=== PATIENT | male | born 1970 | race Hispanic/Latino ===

== ENCOUNTER 2020-06-28 14:49 | Observation (INO) | payer OTHER ==
[~2020-06-28] VITALS: Ht 167.6 cm; Wt 78.5 kg
[2020-06-28] MEDS ORDERED: ONDANSETRON HCL INJ 2MG/ML 2ML 2 MG/ML VIAL IV STA (15:00)
[2020-06-28] MEDS ORDERED: MORPHINE SULFATE INJ 4 MG/ML INJ 1ML IV STA (15:00)
[2020-06-28] MEDS ORDERED: CEFTRIAXONE SOD 1 GM/50 ML BAG IV ONE (15:00)
[2020-06-28] MEDS ORDERED: SODIUM CHLORIDE 0.9% 1000ML 1,000 ML IV STA (15:05)
[2020-06-28] MEDS ORDERED: CEFTRIAXONE SOD 1 GM in SODIUM CHLORIDE 0.9% 50ML 50 ML IV ONE (15:15)
[2020-06-28 15:40] LABS: EOSINOPHILS % 1.2 % (0.0-6.0); HEMATOCRIT 30.2 % (38.2-49.6); HEMOGLOBIN 9.7 g/dL (14.0-18.0); LYMPHOCYTES # (AUTO) 0.5 (1.0-3.2); LYMPHOCYTES % 18.7 % (18.0-39.1); MEAN CORPUSCULAR HEMOGLOBIN 30.1 pg (28-32); MEAN CORPUSCULAR HGB CONC 32.1 g/dL (31-35); MEAN CORPUSCULAR VOLUME 93.8 fL (81-99); MONOCYTES # (AUTO) 0.1 (0.2-0.8); MONOCYTES % 3.5 % (4.4-11.3); NEUTROPHILS % 76.2 % (38.7-80.0); PLATELET COUNT 103 x10e3/uL (140-360); RED BLOOD COUNT 3.22 x10e6/uL (4.3-5.7); RED CELL DISTRIBUTION WIDTH 15.7 % (11.7-14.4)
[2020-06-28 15:59] LABS: INR 0.93; PROTHROMBIN TIME 13.1 seconds (11.9-14.5)
[2020-06-28 16:00] LABS: PARTIAL THROMBOPLASTIN TIME 31.2 seconds (23.8-35.5)
[2020-06-28 16:10] LABS: ALBUMIN/GLOBULIN RATIO 0.5 (0.8-2.0); ANION GAP 15.8 mmol/L (8-16); CALCIUM 9.4 mg/dL (8.4-10.2); CREATININE, SERUM 1.36 mg/dL (0.72-1.25); EOSINOPHILS % (MANUAL) 3 % (0-7); LYMPHOCYTES % (MANUAL) 21 % (19-48); MAGNESIUM 1.7 MG/DL (1.3-2.1); MONOCYTES % (MANUAL) 2 % (3.4-9.0); NEUTROPHILS % (MANUAL) 74 % (40-74); PLATELET ESTIMATE SLIGHTLY DECREASED; PLATELET MORPHOLOGY COMMENT NORMAL; POTASSIUM 3.8 mmol/L (3.5-5.1); RBC MORPHOLOGY COMMENT NORMAL
[2020-06-28 16:17] LABS: CREATINE KINASE MB 0.3 ng/mL (0-5.0)
[2020-06-28 16:38] LABS: B-TYPE NATRIURETIC PEPTIDE2 < 10.0 pg/mL (0-100)
[2020-06-28] MEDS ORDERED: VANCOMYCIN 1GM/NS 250 ML 250 ML IV SCH (17:00)
[2020-06-28] MEDS: CEFEPIME 2 GM/NS 0.9% 100 ML 100 ML IV SCH (17:06)
[2020-06-28 17:56] LABS: CLARITY,URINE HAZY (CLEAR); COLOR,URINE YELLOW (YELLOW); KETONES,URINE NEGATIVE (NEGATIVE); LEUKOCYTE ESTERASE ,URINE NEGATIVE (NEGATIVE); NITRITE,URINE NEGATIVE (NEGATIVE); PROTEIN,URINE DIPSTICK NEGATIVE (NEGATIVE); URINE UROBILINOGEN 0.2 mg/dL (0.2 - 1)
[2020-06-28 17:57] LABS: BACTERIA,URINE FEW /HPF; EPITHELIAL CELLS,URINE FEW /LPF; RBC,URINE 0-5 /HPF (0-5); WBC,URINE (MAN) 0-5 /HPF (0-5)
[2020-06-28] MEDS ORDERED: ONDANSETRON HCL INJ 2MG/ML 2ML 2 MG/ML VIAL IV PRN (18:00)
[2020-06-28] MEDS ORDERED: MORPHINE SULFATE INJ 2 MG/ML SYR IV PRN (18:00)
[2020-06-28] MEDS: FAMOTIDINE 20 MG/2 ML VIAL IV SCH (18:22)
[2020-06-28] MEDS: VANCOMYCIN 1GM/NS 250 ML 250 ML IV SCH (18:22)
[2020-06-28 20:00] VITALS: BP 117/82
[2020-06-28 22:01] VITALS: BP 128/95
[2020-06-28 22:18] LABS: CREATINE KINASE MB 0.4 ng/mL (0-5.0)
[2020-06-29] VITALS: BP 113/71
[2020-06-29 03:54] LABS: EOSINOPHILS % 0.9 % (0.0-6.0); HEMATOCRIT 26.4 % (38.2-49.6); HEMOGLOBIN 8.5 g/dL (14.0-18.0); LYMPHOCYTES # (AUTO) 0.6 (1.0-3.2); LYMPHOCYTES % 25.4 % (18.0-39.1); MEAN CORPUSCULAR HEMOGLOBIN 29.8 pg (28-32); MEAN CORPUSCULAR HGB CONC 32.2 g/dL (31-35); MEAN CORPUSCULAR VOLUME 92.6 fL (81-99); MONOCYTES # (AUTO) 0.2 (0.2-0.8); MONOCYTES % 8.9 % (4.4-11.3); NEUTROPHILS # (AUTO) 1.5 (2.1-6.9); NEUTROPHILS % 64.8 % (38.7-80.0); PLATELET COUNT 77 x10e3/uL (140-360); RED BLOOD COUNT 2.85 x10e6/uL (4.3-5.7); RED CELL DISTRIBUTION WIDTH 15.8 % (11.7-14.4)
[2020-06-29 04:00] VITALS: BP 104/71
[2020-06-29 04:19] LABS: CREATINE KINASE MB 0.4 ng/mL (0-5.0)
[2020-06-29 04:20] LABS: ALANINE AMINOTRANSFERASE 27 IU/L (0-55); ALBUMIN 2.4 g/dL (3.5-5.0); ALBUMIN/GLOBULIN RATIO 0.5 (0.8-2.0); ALKALINE PHOSPHATASE 49 IU/L (40-150); ANION GAP 13.2 mmol/L (8-16); BLOOD UREA NITROGEN 17 mg/dL (7-26); BUN/CREATININE RATIO 14 (6-25); CALCIUM 9.1 mg/dL (8.4-10.2); CARBON DIOXIDE 26 mmol/L (22-29); CHLORIDE 100 mmol/L (98-107); CHOLESTEROL 133 MD/DL (0-199); CREATININE, SERUM 1.21 mg/dL (0.72-1.25); EST GLOMERULAR FILTRATION RATE > 60 ML/MIN (60-); GLUCOSE 97 mg/dL (74-118); HDL CHOLESTEROL 33 MG/DL (40-60); LDL CHOLESTEROL 79 MG/DL (60-130); POTASSIUM 4.2 mmol/L (3.5-5.1); SODIUM 135 mmol/L (136-145); TRIGLYCERIDES 107 MG/DL (0-149)
[2020-06-29] MEDS ORDERED: SODIUM CHLORIDE 0.9% 250ML 250 ML ONE (05:30)
[2020-06-29] MEDS: CEFEPIME 2 GM/NS 0.9% 100 ML 100 ML IV SCH (05:35)
[2020-06-29] MEDS: VANCOMYCIN 1GM/NS 250 ML 250 ML IV SCH (06:12)
[2020-06-29] MEDS: FAMOTIDINE 20 MG/2 ML VIAL IV SCH (06:12)
[2020-06-29 08:00] VITALS: BP 109/76
[2020-06-29 10:57] VITALS: BP 109/76
[2020-06-29 11:36] VITALS: BP 119/82
[2020-06-29] MEDS ORDERED: ZITHROMAX500 MG PO (12:57)
[2020-06-29] MEDS ORDERED: CEFUROXIME250 MG PO (12:57)
== END 2020-06-29 15:15 | disposition home or self-care (01) ==
LOC: ER 14:58 → ERHOLD 17:56 → INTOOBSV 17:56 → MED/SURG 18:37
PROVIDERS: ADMIT Internal Medicine; ATTEND Internal Medicine
DX: A41.9 Sepsis, unspecified organism (principal); J18.0 Bronchopneumonia, unspecified organism; R07.89 Other chest pain; C90.00 Multiple myeloma not having achieved remission; D70.9 Neutropenia, unspecified; R50.81 Fever presenting with conditions classified elsewhere; Z20.822 Contact with and (suspected) exposure to COVID-19
CPT/HCPCS: 36415 ×2; 71045; 80053 ×2; 80061; 81001; 82550 ×2; 82553 ×2; 83605; 83735; 83880; 84484 ×2; 85025 ×2; 85379; 85610; 85730; 87040; 87086; 93005; 99284; G0378 ×2; J0696; J2270; J2405; J3370 ×2; J7030; J7050; U0002

== ENCOUNTER 2021-08-10 10:03 | Emergency (ER) | payer OTHER ==
[~2021-08-10] VITALS: Ht 167.6 cm; Wt 78.5 kg
[~2021-08-10 10:03] MED LIST: CEFUROXIME250 MG PO; ZITHROMAX500 MG PO
[2021-08-10] MEDS ORDERED: ONDANSETRON HCL INJ 2MG/ML 2ML 2 MG/ML VIAL IV STA (10:30)
[2021-08-10] MEDS ORDERED: SODIUM CHLORIDE 0.9% 1000ML 1,000 ML IV STA (10:30)
[2021-08-10 11:36] LABS: BASOPHILS # (AUTO) 0.1 (0.0-0.1); EOSINOPHILS # (AUTO) 0.1 (0.0-0.4); EOSINOPHILS % 1.5 % (0.0-6.0); HEMATOCRIT 40.9 % (38.2-49.6); HEMOGLOBIN 12.8 g/dL (14.0-18.0); LYMPHOCYTES # (AUTO) 0.4 (1.0-3.2); LYMPHOCYTES % 7.4 % (18.0-39.1); MEAN CORPUSCULAR HEMOGLOBIN 31.3 pg (28-32); MEAN CORPUSCULAR HGB CONC 31.3 g/dL (31-35); MONOCYTES # (AUTO) 0.4 (0.2-0.8); MONOCYTES % 7.4 % (4.4-11.3); NEUTROPHILS # (AUTO) 4.3 (2.1-6.9); NEUTROPHILS % 82.5 % (38.7-80.0); PLATELET COUNT 422 x10e3/uL (140-360); RED BLOOD COUNT 4.09 x10e6/uL (4.3-5.7); RED CELL DISTRIBUTION WIDTH 12.2 % (11.7-14.4)
[2021-08-10 11:57] LABS: INR 0.88; PROTHROMBIN TIME 12.8 seconds (11.9-14.5)
[2021-08-10 12:08] LABS: ALANINE AMINOTRANSFERASE 65 IU/L (0-55); ALBUMIN 3.6 g/dL (3.5-5.0); ALBUMIN/GLOBULIN RATIO 0.7 (0.8-2.0); ALKALINE PHOSPHATASE 82 IU/L (40-150); BLOOD UREA NITROGEN 13 mg/dL (7-26); BUN/CREATININE RATIO 11 (6-25); CALCIUM 10.4 mg/dL (8.4-10.2); CARBON DIOXIDE 26 mmol/L (22-29); CHLORIDE 102 mmol/L (98-107); CREATINE KINASE 41 IU/L (30-200); CREATININE, SERUM 1.18 mg/dL (0.72-1.25); GLUCOSE 108 mg/dL (74-118); LIPASE 22 U/L (8-78); MAGNESIUM 2.1 MG/DL (1.3-2.1); SODIUM 141 mmol/L (136-145)
[2021-08-10] MEDS ORDERED: HYDROCODONE/APAP 7.5MG-325MG 1 EA TAB PO ONE (12:15)
[2021-08-10] MEDS ORDERED: HYDROCODONE/APAP 7.5MG-325MG 1 EA TAB ONE (12:29)
[2021-08-10 12:55] LABS: CLARITY,URINE CLEAR (CLEAR); COLOR,URINE YELLOW (YELLOW); LEUKOCYTE ESTERASE ,URINE NEGATIVE (NEGATIVE); NITRITE,URINE NEGATIVE (NEGATIVE)
[2021-08-10 12:56] LABS: KETONES,URINE NEGATIVE (NEGATIVE); PROTEIN,URINE DIPSTICK 2+ (NEGATIVE); URINE UROBILINOGEN 0.2 mg/dL (0.2 - 1)
[2021-08-10 13:07] LABS: BACTERIA,URINE MODERATE /HPF; EPITHELIAL CELLS,URINE RARE /LPF; WBC,URINE (MAN) 0-5 /HPF (0-5)
[2021-08-10] MEDS ORDERED: GADOBENATE DIMEGLUMINE 0 ML IV ONE (13:47)
[2021-08-10 14:56] VITALS: BP 150/80
== END 2021-08-10 14:58 | disposition home or self-care (01) ==
LOC: ER 10:21
DX: R10.30 Lower abdominal pain, unspecified (principal); K59.00 Constipation, unspecified; M54.9 Dorsalgia, unspecified; U07.1 COVID-19; Z85.79 Personal history of other malignant neoplasms of lymphoid, hematopoietic and related tissues; Z79.899 Other long term (current) drug therapy; R94.31 Abnormal electrocardiogram [ECG] [EKG]
CPT/HCPCS: 36415; 71045; 74176; 80053; 81001; 82550; 82553; 83605; 83690; 83735; 84484; 85025; 85610; 85730; 87040; 87086; 87186; 93005; 99284; C9113; J2405; J7030; U0002